=== PATIENT | male | born 1960 | race Caucasian/White ===

== ENCOUNTER 2016-06-08 18:04 | Emergency (ER) | payer OTHER ==
[~2016-06-08] VITALS: Ht 177.8 cm; Wt 104.5 kg
[~2016-06-08 18:04] MED LIST: CYCL5TAB PO; HYDR12.5 PO; LISI10TA PO; LOVA20TA PO; TEST200V21 IM
[2016-06-08 18:14] VITALS: BP 142/89; PULSE 81; RESP 12; O2SAT 98
[2016-06-08] MEDS ORDERED: TdaP Vaccine 0.5 mL Inj IM ONE (19:56)
--- NOTE | 2016-06-08 20:32 | ED.REPORT ---
HPI-Extremity Problem Upper Date of Service Jun 08, 2016 ED Provider: MD Earl This is a 55 year old male with a history of hyperlipidemia and hypertension presenting to the emergency department due to injury to right thumb that occurred just prior to arrival after smashing it while using a cook starch. Patient reports bleeding, denies numbness, tingling, weakness, or changes in range of motion. Denies any other injuries at this time. Nursing Notes Stated Complaint: RIGHT THUMB LAC Chief Complaint: Extremity Trauma Nursing Notes Reviewed: Yes Allergies: Coded Allergies: No Known Allergies (Unverified Allergy, Unknown, 10/17/15) Scheduled Hydrochlorothiazide (Hydrochlorothiazide) 12.5 Mg Capsule 12.5 MG PO DAILY Lisinopril (Lisinopril) 10 Mg Tablet 10 MG PO DAILY Lovastatin (Lovastatin) 20 Mg Tablet 20 MG PO HS Testosterone Enanthate (Testosterone Enanthate) 200 Mg/1 Ml Vial 200 MG IM QOweek Scheduled PRN Cyclobenzaprine (Cyclobenzaprine) 5 Mg Tablet 5 MG PO HS PRN PRN Spasm General Time Seen by MD: 20:32 Chief Complaint Finger injury right 1 Hx Obtained From: Patient Arrived By: Walk-in Onset Occurred: Just prior to arrival Symptom Duration: Since onset Severity: Maximum: Mild Pertinent Negative: Pt denies other symptoms Recent Healthcare: No recent doctor visit, No recent hospitalization Similar Sx Previous: No Past Medical History Past Medical History Reports: Hyperlipidemia, Hypertension Past Surgical History None reported Denies stents Smoking History Unknown if Ever Smoker Ambulatory Status Independent Review of Systems Constitutional: Denies: Chills, Fever Musculoskeletal: Reports: Extremity pain Skin: Denies Swelling Complete sys rev & neg: except as marked. Hematologic: Reports Bleeding Physical Exam Initial Vital Signs Vital Signs (First) Date Time Temp Pulse Resp B/P Pulse Ox O2 Delivery O2 Flow Rate FiO2 06/08/16 18:14 36.6 81 12 142/89 98 Room Air Initial VS: Reviewed General/Constitutional: Well-developed, Well-nourished Head / Eyes: Atraumatic, Normocephalic, PERRL ENT: Mucous membranes moist, Conjunctiva normal, No scleral icterus Neck: Supple, Non-tender, Full range of motion Respiratory: Breath sounds normal, Clear to auscultation, No respiratory distress Cardiovascular: Regular rate & rhythm, Heart sounds normal, Intact distal pulses Lower Extremities: Vascular intact, Neuro intact, No swelling, No tenderness Skin: Warm, Dry, No cyanosis Neurologic: Alert, Oriented, Nonfocal Psychiatric: Mood/affect normal, Behavior normal, Normal thought content Wrist / Hand: Full range of motion, Neurologic intact Abrasion to right thumb on distal pulp of thumb pad. No tenderness to palpation to thumb, no subungual hematoma Re-Eval/Medical Decision Med Decision/Clinical Course 55-year-old right-hand dominant male here with abrasion to his right thumb. Differential diagnosis includes but is not limited to abrasion versus contusion versus fracture versus dislocation. Clinically, patient has no evidence of fracture or dislocation. He does have a small avulsion at the tip of his thumb. It was irrigated copiously and bacitracin was applied and dressing was applied. I do not feel patient requires antibiotics at this time. He was given T gap in the emergency department and is amenable to discharge and follow- up with his primary care physician. He has been given very strict return precautions. Counseled Regarding: Diagnosis, Need for follow-up, When/why to return to ED Discharge & Departure Impression: Primary Impression: Abrasion Disposition: Home Discharge Condition All VS Reviewed: Yes Condition: Stable Patient Instructions: Abrasion (ED) Additional Instructions: Thank you for seeking care in the emergency department. Apply antibiotic ointment to the injury. Follow-up with your primary care provider. Return to the emergency department for any new or worsening symptoms. Referrals: Heri Clark ND (PCP) Scribe Attestation Portions of this note were transcribed by Tiesha Hinson. I, Dr. Elliott personally performed the history, physical exam and medical decision-making; I reviewed and confirmed the accuracy of the information in the transcribed note. Signed by: day Kohli. 06/08/2016, 03:00. Yadi Elliott MD Jun 08, 2016 20:32 TIESHA HINSON Jun 08, 2016 20:46
== END 2016-06-08 21:05 | disposition home or self-care (01) ==
LOC: SED 18:04
DX: S60.311A Abrasion of right thumb, initial encounter (principal); W22.8XXA Striking against or struck by other objects, initial encounter; Y93.H9 Activity, other involving exterior property and land maintenance, building and construction; Y92.9 Unspecified place or not applicable; Y99.8 Other external cause status; I10 Essential (primary) hypertension; E78.5 Hyperlipidemia, unspecified; Z23 Encounter for immunization; Z79.899 Other long term (current) drug therapy